=== PATIENT | male | born 1995 | race Two or more races ===

== ENCOUNTER 2022-11-18 23:56 | Emergency (ER) | payer OTHER ==
[~2022-11-18] VITALS: Ht 177.8 cm; Wt 81.6 kg
[2022-11-19] MEDS ORDERED: PHENAGIL TABLE1 EACH PO ×2 (03:33→03:36)
== END 2022-11-19 03:40 ==
LOC: ER 23:56
DX: J02.9 Acute pharyngitis, unspecified (principal); H92.02 Otalgia, left ear; Z88.6 Allergy status to analgesic agent